=== PATIENT | male | born 1970 | race Caucasian/White ===

== ENCOUNTER 2017-08-17 20:46 | Observation (INO) | payer OTHER ==
[~2017-08-17 20:46] MED LIST: PRED20 PO; TYLETAB34 PO
[2017-08-17 23:33] VITALS: BP 104/55; PULSE 54; RESP 18; TEMP 98.5; O2SAT 97
[2017-08-17 23:59] VITALS: PULSE 47
[2017-08-18 03:40] VITALS: BP 112/60; PULSE 46; RESP 18; TEMP 98.4; O2SAT 100
[2017-08-18 04:01] VITALS: PULSE 45
[2017-08-18] MEDS ORDERED: ACETAMINOPHEN 500 MG CPLT PO PRN (06:00)
[2017-08-18 08:45] VITALS: PULSE 53
--- NOTE | 2017-08-18 09:00 | HHI.HP ---
HPI Primary Care Physician No Primary Care Physician Chief Complaint Chest pain Abdominal pain/diarrhea PTSD History of Present Illness 46 yo male recovered alcoholic and addict who had been having ongoing GI problems with nausea and diarrhea, and can't sleep due to "PTSD". Four or five days ago he began to have some chest pain described as a tightness or weight in his mid chest which sometimes radiates across to the right chest and up to the right neck. This can be severe 8/10 but is very brief lasting only seconds. It is associated with the feeling of a need to burp or vomit. It does seem to be related to eating but not clearly. He also had a feeling of acid in his stomach and has been having daily diarrhea. He also notes that he has been having some numbness in his hands when he holds his phone for a time and attributes this to poor circulation. He is not sleeping well often waking after only 3-4 hours with "the terrors" which he attributes to PTSD. Review of Systems Cardiovascular: COMPLAINS OF: See HPI Gastrointestinal: COMPLAINS OF: Nausea, Vomiting, Change in bowel habits Neurologic: COMPLAINS OF: Tingling or numbness Psychiatric: COMPLAINS OF: Anxiety PTSD Past Family Social History Allergies: Coded Allergies: No Known Allergies (Unverified Allergy, Unknown, 08/18/17) Past Medical History Drug and alcohol addiction Past Surgical History Fracture right leg and reattached finger right hand Reported Medications Reported Meds & Active Scripts Active No Active Prescriptions or Reported Medications Active Ordered Medications Current Medications Medications (Trade) Dose Ordered Sig/Aydin Route Start Time Stop Time Status Last Admin (Tylenol) 500 mg Q4H PRN PO 08/18/17 06:00 08/18/17 06:18 Family History Father has had CVA Mother HTN, DM, lipids, CAD/Stent brother LW Social History Recovering alcoholic and drug addict Still smokes PPD 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 HEAD: Atraumatic. Normocephalic. EYES: Pupils equal and round. MARK, EOMI, No scleral icterus. No injection or drainage. ENT: No nasal bleeding or discharge. Mucous membranes pink and moist. NECK: Trachea midline. No JVD. Tenderness left neck with two small palpable nodes along the anterior sternocleidomastoid. CARDIOVASCULAR: Regular rate and rhythm. RESPIRATORY: No accessory muscle use. Clear to auscultation. Breath sounds equal bilaterally. GASTROINTESTINAL: Abdomen thin tight but non-tender, nondistended. Hepatic and splenic margins not palpable. BS are hyperactive. MUSCULOSKELETAL: Extremities without clubbing, cyanosis, or edema. No obvious deformities but scar right finger and right lower leg. NEUROLOGICAL: Awake and alert. No obvious cranial nerve deficits. Motor grossly within normal limits. Five out of 5 muscle strength in the arms and legs. Normal speech. PSYCHIATRIC: Appropriate mood and affect; insight and judgment normal. Laboratory Laboratory Tests Test 08/17/17 21:25 Troponin I LESS THAN 0.02 Imaging CXR unremarkable Course Atypical "CP possibly GI related but will RO by protocol and ETT GI problem with nausea and diarrhea needs further OP evaluation Tender nodes right neck needs OP evaluation Possible PTSD needs OP psych evaluation Caprini VTE Risk Assessment Caprini VTE Risk Assessment: No/Low Risk (score <= 1) Caprini Risk Assessment Model Point Value = 1 Point Value = 2 Point Value = 3 Point Value = 5 Age 41-60 Minor surgery BMI > 25 kg/m2 Swollen legs Varicose veins or History of unexplained or recurrent spontaneous Oral contraceptives or hormone replacement Sepsis (< 1 month) Serious lung disease, including pneumonia (< 1 month) Abnormal pulmonary function Acute myocardial infarction Congestive heart failure (< 1 month) History of inflammatory bowel disease Medical patient at bed rest Age 61-74 Arthroscopic surgery Major open surgery (> 45 min) Laparoscopic surgery (> 45 min) Malignancy Confined to bed (> 72 hours) Immobilizing plaster cast Central venous access Age >= 75 History of VTE Family history of VTE Factor V Leiden Prothrombin [id number] Lupus anticoagulant Anticardiolipin antibodies Elevated serum homocysteine Heparin-induced thrombocytopenia Other congenital or acquired thrombophilia Stroke (< 1 month) Elective arthroplasty Hip, pelvis, or leg fracture Acute spinal cord injury (< 1 month) Prophylaxis Regimen Total Risk Factor Score Risk Level Prophylaxis Regimen 0-1 Low Early ambulation 2 Moderate Order ONE of the following: *Sequential Compression Device (SCD) *Heparin 5000 units SQ BID 3-4 Higher Order ONE of the following medications: *Heparin 5000 units SQ TID *Enoxaparin/Lovenox 40 mg SQ daily (WT < 150 kg, CrCl > 30 mL/min) *Enoxaparin/Lovenox 30 mg SQ daily (WT < 150 kg, CrCl > 10-29 mL/min) *Enoxaparin/Lovenox 30 mg SQ BID (WT < 150 kg, CrCl > 30 mL/min) AND/OR *Sequential Compression Device (SCD) 5 or more Highest Order ONE of the following medications: *Heparin 5000 units SQ TID (Preferred with Epidurals) *Enoxaparin/Lovenox 40 mg SQ daily (WT < 150 kg, CrCl > 30 mL/min) *Enoxaparin/Lovenox 30 mg SQ daily (WT < 150 kg, CrCl > 10-29 mL/min) *Enoxaparin/Lovenox 30 mg SQ BID (WT < 150 kg, CrCl > 30 mL/min) AND *Sequential Compression Device (SCD) Assessment and Plan Problem List: (1) Chest pain in adult ICD Codes: R07.9 - Chest pain, unspecified Status: Acute Plan: Evaluate by protocol and ETT (2) Abdominal pain ICD Codes: R10.9 - Unspecified abdominal pain Status: Acute Plan: FU as OP for GI evaluation (3) Lymph nodes enlarged ICD Codes: R59.9 - Enlarged lymph nodes, unspecified Status: Acute Plan: FU as OP for evaluation (4) Post traumatic stress disorder (PTSD) ICD Codes: F43.10 - Post-traumatic stress disorder, unspecified Status: Chronic Plan: Needs OP Psych evaluation and patient is aware (5) Diarrhea ICD Codes: R19.7 - Diarrhea, unspecified Status: Acute Plan: As above needs OP evaluation of GI system for ongoing nausea and diarrhea Discussed Condition With Discussed with the patient and he is full aware of need Henri Rubi MD Aug 18, 2017 09:00
[2017-08-18 09:23] VITALS: BP 115/80; PULSE 57; RESP 16; TEMP 98.2; O2SAT 99
[2017-08-18 11:44] VITALS: BP 121/70; PULSE 56; RESP 18; TEMP 98; O2SAT 98
[2017-08-18] MEDS ORDERED: REGADENOSON INJ 0.4 MG/5 ML SYR ONE (13:02)
--- NOTE | 2017-08-18 14:17 | EKG ---
Date Performed: 08/17/2017 Time Performed: 21:14:15 PTAGE: 46 years EKG: SINUS BRADYCARDIA BORDERLINE ECG NO SIG CHANGE NO PREVIOUS TRACING DOCTOR: Henri Rubi Interpretating Date/Time 08/18/2017 14:17:08
--- NOTE | 2017-08-18 14:34 | TR ---
Date Performed: 08/18/2017 Time Performed: 13:10:48 DOCTOR: Henri Rubi DRUG LIST: CLINICAL HISTORY: CHEST PAIN REASON FOR TEST: CHEST PAIN REASON FOR ENDING: OBSERVATION: CONCLUSION: Lexiscan stress test was performed under standard four minute protocol. Radionuclide was injected one minute prior to ending the test. No electrocardiographic abormalities were present to suggest ischemia. Nuclear imaging and interpretation are pending. COMMENTS:
--- NOTE | 2017-08-18 14:35 | RADRPT ---
EXAM DATE/TIME: 08/18/2017 12:47 [facility] COMPARISON: No previous studies available for comparison. INDICATIONS : Chest pain. Angina. DOSE: 25.4 mCi Tc99m Myoview at stress. 8.5 mCi Tc99m Myoview at rest. 0.4 mg Lexiscan STRESS SYMPTOMS: Chest pain, dizziness, flushed and dyspnea. EJECTION FRACTION: 52% MEDICAL HISTORY : Hypertension. Peripheral vascular disease. SURGICAL HISTORY : Rt Leg. ENCOUNTER: Initial ACUITY: 1 day PAIN SCALE: 3/10 LOCATION: Substernal chest TECHNIQUE: The patient underwent pharmacologic stress with infusion of prescribed dose. Continuous ECG tracing was monitored during stress. Gated SPECT imaging was performed after stress and conventional SPECT i maging was performed at rest. The examination was performed on a SPECT/CT scanner, both attenuation and non-corrected datasets were reviewed. FINDINGS: DISTRIBUTION: The maximum perfused segment at stress is in the lateral wall. PERFUSION STUDY: There is moderate decreased activity in the anterior wall involving apical and mid ventricular segmen ts which is unchanged between stress and rest. Regional variation is within 35%. Summed stress scor e is 5. No evidence of redistribution in the anterior segments. GATED STUDY: There is intact wall motion and thickening without hypokinetic or dyskinetic segments. CONCLUSION: 1. No evidence of stress induced ischemia. 2. Mild increased uptake in the apical mid ventricular anterior segment with intact wall motion is no nspecific and could be due to either attenuation fracture or myocardial scar. 3. Normal wall motion with 53% ejection fraction. RISK CATEGORY: Low (<1% Annual Mortality Rate) Baltazar Jauregui MD on August 18, 2017 at 14:31 Board Certified Radiologist. This report was verified electronically.
--- NOTE | 2017-08-18 14:37 | TR ---
Date Performed: 08/18/2017 Time Performed: 09:40:36 DOCTOR: Henri Rubi DRUG LIST: CLINICAL HISTORY: REASON FOR TEST: Chest pain REASON FOR ENDING: OBSERVATION: CONCLUSION: ATTEMPTED RAY PROTOCOL. NO CP OR SOB. STRESS TEST STOPPED SECONDARY TO CHRONIC RT LEG PAIN. WIILL CONVERT TO LEXISCAN.Maximum OR=044 % Max HR Achieved=67.0% Maximum ZI=213/92 Total Ex ercise Time=6:14 COMMENTS: COULD NOT COMPLETE ETT AND NUCLEAR ORDERED
--- NOTE | 2017-08-18 15:07 | HHI.DCPOC ---
Discharge Care Plan Diagnosis: (1) Chest pain in adult (2) Abdominal pain (3) Diarrhea (4) Lymph nodes enlarged (5) Post traumatic stress disorder (PTSD) Goals to Promote Your Health * To prevent worsening of your condition and complications * To maintain your health at the optimal level Directions to Meet Your Goals Take your medications as prescribed Follow your dietary instruction Follow activity as directed Keep your appointments as scheduled Take your immunizations and boosters as scheduled If your symptoms worsen call your PCP, if no PCP go to Urgent Care Center or Emergency Room Smoking is Dangerous to Your Health. Avoid second hand smoke Call the 24-hour hour crisis hotline for domestic abuse at [facility] Aug 18, 2017 15:07
== END 2017-08-18 15:28 | disposition home or self-care (01) ==
LOC: NEDDLT 20:46 → NEPFCDU 20:48
PROVIDERS: ADMIT Internal Medicine Interventional Cardiology; ATTEND Internal Medicine Interventional Cardiology
DX: R07.9 Chest pain, unspecified (principal); R19.7 Diarrhea, unspecified; R10.9 Unspecified abdominal pain; F43.10 Post-traumatic stress disorder, unspecified; R20.0 Anesthesia of skin; F10.21 Alcohol dependence, in remission; F12.90 Cannabis use, unspecified, uncomplicated; F17.210 Nicotine dependence, cigarettes, uncomplicated; R59.9 Enlarged lymph nodes, unspecified; Z01.810 Encounter for preprocedural cardiovascular examination
CPT/HCPCS: 71010; 78452; 80048; 82550; 82552; 83735; 84484; 85025; 85379; 85610; 85730; 93005; 93017; A9502; G0378; J2785